=== PATIENT | female | born 1970 | race Two or more races ===

== ENCOUNTER 2023-09-21 16:08 | Emergency (ER) | payer OTHER ==
[~2023-09-21] VITALS: Ht 170.2 cm; Wt 84.4 kg
[2023-09-21] MEDS ORDERED: TOPROL XL25 M1 (16:23)
== END 2023-09-21 20:51 | disposition home or self-care (01) ==
LOC: ER 16:09
DX: S91.331A Puncture wound without foreign body, right foot, initial encounter (principal); W45.0XXA Nail entering through skin, initial encounter; Y93.9 Activity, unspecified; Y92.9 Unspecified place or not applicable; Y99.9 Unspecified external cause status